=== PATIENT | male | born 1945 | race Caucasian/White ===

== ENCOUNTER 2019-07-02 07:28 | Day surgery (SDC) | payer MEDICARE, OTHER ==
[2019-07-02] MEDS ORDERED: PROPOFOL 10 MG/ML VIAL IV ONE (07:29)
[2019-07-02] MEDS ORDERED: LIDOCAINE 2% MDV (20MG/ML) 20ML VIAL IV ONE (07:29)
--- NOTE | 2019-07-03 07:30 | Operative Note ---
OPERATION: COLONOSCOPY with cold snare polypectomy. PREOPERATIVE DIAGNOSIS: Colon polyps and surveillance. POSTOPERATIVE DIAGNOSIS: Sigmoid diverticulosis and ascending colon polyp. PROCEDURE: After informed consent was obtained from the patient, he was placed in the left lateral decubitus position in the endoscopy suite, sedated and monitored by the department of anesthesia. Digital rectal exam was unremarkable. A well-lubricated [id number] colonoscope was inserted into the rectum and advanced to the cecum. Preparation quality was good to excellent. The cecum, cecal bulb, ileocecal valve, appendiceal orifice were unremarkable. The ascending colon revealed a 4-5 mm sessile polyp removed with a cold snare and retrieved. The remainder of the ascending colon, transverse colon, and descending colon were unrevealing. The sigmoid colon demonstrated [id number] diverticular changes. No polyps were seen. No inflammation was noted. The rectum was unremarkable in forward and J-turn views. The endoscope was straightened, the rectal ampulla deflated, and the endoscope was removed. RECOMMENDATIONS: The patient should follow a high-fiber diet. He will require a repeat exam in 5 years. As always, thank you for allowing me to participate in the healthcare of your patients. LESLEY
== END 2019-07-02 09:15 | disposition home or self-care (01) ==
LOC: HOP 07:28
PROVIDERS: ATTEND Internal Medicine Gastroenterology
DX: Z12.11 Encounter for screening for malignant neoplasm of colon (principal); Z86.010 Personal history of colon polyps; D12.2 Benign neoplasm of ascending colon; K57.30 Diverticulosis of large intestine without perforation or abscess without bleeding; E11.9 Type 2 diabetes mellitus without complications; I10 Essential (primary) hypertension; E78.00 Pure hypercholesterolemia, unspecified; N40.0 Benign prostatic hyperplasia without lower urinary tract symptoms; M10.9 Gout, unspecified